=== PATIENT | female | born 1965 | race Caucasian/White ===

== ENCOUNTER 2017-05-20 05:53 | Day surgery (SDC) | payer OTHER ==
[~2017-05-20] VITALS: Ht 170.2 cm; Wt 58.0 kg
[2017-05-20] MEDS ORDERED: ABCC1C PO (07:06)
[2017-05-20] MEDS ORDERED: NAPR220C2 PO (07:06)
[2017-05-20 07:37] VITALS: BP 113/80; PULSE 74; RESP 12
--- NOTE | 2017-05-20 08:32 | OPPN ---
Date/Time of Note Date/Time of Note DATE: 05/20/17 TIME: 08:31 Operative Report Preoperative Diagnosis Screening Positive occult blood in stool Postoperative Diagnosis Sigmoid polyp was removed using the snare and electrocautery Internal hemorrhoids Operation/Procedure Performed Colonoscopy and polypectomy Surgeon see signature line bilingual administrative assistant None Anesthesia: moderate sedation Estimated blood loss: none Transfusion Required none Specimen Sigmoid polyp Grafts/Implants none Complications none DM GAMBOA MD May 20, 2017 08:32
[2017-05-20] MEDS ORDERED: FENTAnyl 50 MCG/ML VIAL ONE (08:34)
[2017-05-20] MEDS ORDERED: MIDAZOLAM 1 MG/ML 2 ML INJ ONE ×4 (08:34→08:35)
--- NOTE | 2017-05-20 10:14 | GILP ---
DATE OF PROCEDURE: 05/20/2017 PROCEDURE PERFORMED: Colonoscopy and polypectomy. SURGEON: Allan Ortiz MD. PREOPERATIVE DIAGNOSES: 1. Screening colonoscopy. 2. Positive occult blood in stool. POSTOPERATIVE DIAGNOSES: 1. Colonoscopy all the way to the cecum. 2. Sigmoid colon polyp was removed using the snare and electrocautery. 3. Internal hemorrhoids. INDICATION: Ms. Jennifer Vasquez is a 51-year-old female patient who was scheduled for screening colonoscopy. She had positive occult blood in stool. The procedure and possible complications were well explained to the patient. She understood and consented to the procedure. DESCRIPTION OF PROCEDURE: Under the influence of fentanyl and Versed, the colonoscope was carefully introduced in the rectum. Under direct vision, it was advanced all the way to the cecum. Findings, the patient had a sigmoid colon polyp and it was removed using the snare and electrocautery. She had internal hemorrhoids. She tolerated the procedure very well, and there was no complication from the procedure. At the end of procedure, she was awake with stable vital signs and she was discharged home in care of her family. IMPRESSION: Please see postop diagnoses. PLAN: 1. Await histopathology report. 2. Next screening colonoscopy in 5 years. Dictated By: MD VASILE Lara/annelise/nicole /Document#: [id number]
== END 2017-05-20 15:55 | disposition home or self-care (01) ==
LOC: GIL 05:53
PROVIDERS: ATTEND Internal Medicine Gastroenterology
DX: Z12.11 Encounter for screening for malignant neoplasm of colon (principal); D12.5 Benign neoplasm of sigmoid colon; K64.8 Other hemorrhoids
CPT/HCPCS: 45380; 84703; 88305; J2250; J3010; Z7610